=== PATIENT | male | born 1950 | race Caucasian/White ===

== ENCOUNTER → 2021-12-25 | Outpatient (CLI) | payer BC ==
[~2021-12-25] MED LIST: CARVEDILOL6.25 MG PO; CEFD300 PO; CEFP200 PO; Desyrel50 MG; Diovan320 MG PO; HYDCHL12.5 PO; LOSA50 PO; Norvasc5 MG PO; Omeprazole20 M1 PO; TRAZ150T57 PO
[2021-12-25 10:50] LABS: BASOPHILS ABSOLUTE AUTO 0.03 K/mm3 (0.00-0.23); BASOPHILS PERCENT AUTO 0 % (0-2); EOSINOPHILS PERCENT AUTO 0 % (0-6); Hematocrit 37.2 % (37.0-53.0); Hemoglobin 13.5 g/dL (13.5-17.5); IMMATURE GRAN ABSOLUTE AUTO 0.09 K/mm3 (0.00-0.10); IMMATURE GRAN PERCENT AUTO 1 % (0-1); LYMPHOCYTES ABSOLUTE AUTO 1.06 K/mm3 (0.84-5.20); LYMPHOCYTES PERCENT AUTO 8 % (21-46); MONOCYTES ABSOLUTE AUTO 2.15 K/mm3 (0.16-1.47); MONOCYTES PERCENT AUTO 16 % (4-13); Mean Corpuscular HGB 32.9 pg (26.0-34.0); Mean Corpuscular HGB Conc 36.3 g/dL (31.5-36.5); Mean Corpuscular Volume 91 fL (80-100); Mean Platelet Volume 9.1 fL (9.1-12.4); NEUTROPHILS PERCENT AUTO 76 % (41-73); Platelet Count 425 K/mm3 (150-400); RDW Coefficient Variation 13.2 % (11.7-14.2); RDW Standard Deviation 43.7 fL (35.1-46.3); White Blood Cell Count 13.73 K/mm3 (4.00-11.30)
[2021-12-25 11:14] LABS: Albumin, Blood 3.7 g/dL (3.4-5.0); Albumin/Globulin Ratio 0.9 (0.8-1.8); Bilirubin, Total 0.8 mg/dL (0.1-1.0); Bun/Creatinine Ratio 14.5 (12.0-20.0); Calcium, Blood 9.7 mg/dL (8.5-10.1); Creatinine, Blood 1.1 mg/dL (0.60-1.20); Free Thyroxine 1.72 ng/dL (0.70-1.60); Thyroid Stimulating Hormone 0.393 uIU/mL (0.360-4.800); Total Protein, Blood 7.7 g/dL (6.4-8.2)
== END ==
LOC: LAB SHORT 10:47
PROVIDERS: General Practice
DX: R07.9 Chest pain, unspecified (principal); R53.81 Other malaise; R82.90 Unspecified abnormal findings in urine
CPT/HCPCS: 80053; 84439; 84443; 84481; 84484; 85025; 87086

== ENCOUNTER 2022-02-01 01:48 | Day surgery (SDC) | payer MEDICARE ==
[~2022-02-01 01:48] MED LIST changes: +CEFTRIAXONE2 G1 IV
== END 2022-02-01 11:06 | disposition home or self-care (01) ==
LOC: ATC 01:48
DX: M46.22 Osteomyelitis of vertebra, cervical region (principal); M46.42 Discitis, unspecified, cervical region; I10 Essential (primary) hypertension; Z88.1 Allergy status to other antibiotic agents
CPT/HCPCS: 96374; J0696

== ENCOUNTER 2022-02-02 01:56 | Day surgery (SDC) | payer MEDICARE | END 2022-02-02 11:19 | disposition home or self-care (01) | LOC: ATC 01:56 | DX: M46.22 Osteomyelitis of vertebra, cervical region (principal); M46.42 Discitis, unspecified, cervical region | CPT/HCPCS: 96374; J0696 ==

== ENCOUNTER 2022-02-03 02:10 | Day surgery (SDC) | payer MEDICARE | END 2022-02-03 11:25 | disposition home or self-care (01) | LOC: ATC 02:10 | DX: M46.42 Discitis, unspecified, cervical region (principal); M46.22 Osteomyelitis of vertebra, cervical region; I10 Essential (primary) hypertension; E78.5 Hyperlipidemia, unspecified; C67.9 Malignant neoplasm of bladder, unspecified | CPT/HCPCS: 96374; J0696 ==

== ENCOUNTER 2022-02-04 02:09 | Day surgery (SDC) | payer MEDICARE | END 2022-02-04 11:19 | disposition home or self-care (01) | LOC: ATC 02:09 | DX: M46.42 Discitis, unspecified, cervical region (principal); M46.22 Osteomyelitis of vertebra, cervical region | CPT/HCPCS: 96374; J0696 ==

== ENCOUNTER 2022-02-05 02:19 | Day surgery (SDC) | payer MEDICARE | END 2022-02-05 11:23 | disposition home or self-care (01) | LOC: ATC 02:19 | DX: M46.42 Discitis, unspecified, cervical region (principal); C67.9 Malignant neoplasm of bladder, unspecified; I10 Essential (primary) hypertension; E78.5 Hyperlipidemia, unspecified; Z79.899 Other long term (current) drug therapy | CPT/HCPCS: 96374; J0696 ==

== ENCOUNTER 2022-02-07 00:25 | Day surgery (SDC) | payer MEDICARE | END 2022-02-07 11:20 | disposition home or self-care (01) | LOC: ATC 00:25 | DX: M46.42 Discitis, unspecified, cervical region (principal); C67.9 Malignant neoplasm of bladder, unspecified; I10 Essential (primary) hypertension; E78.5 Hyperlipidemia, unspecified; Z88.1 Allergy status to other antibiotic agents; Z79.899 Other long term (current) drug therapy | CPT/HCPCS: J0696 ==

== ENCOUNTER 2022-02-08 02:14 | Day surgery (SDC) | payer MEDICARE | END 2022-02-08 13:58 | disposition home or self-care (01) | LOC: ATC 02:14 | DX: M46.42 Discitis, unspecified, cervical region (principal); I10 Essential (primary) hypertension; E78.5 Hyperlipidemia, unspecified; C67.9 Malignant neoplasm of bladder, unspecified; Z88.1 Allergy status to other antibiotic agents; Z79.899 Other long term (current) drug therapy | CPT/HCPCS: J0696 ==

== ENCOUNTER 2022-02-09 00:11 | Day surgery (SDC) | payer MEDICARE | END 2022-02-09 13:12 | disposition home or self-care (01) | LOC: ATC 00:11 | DX: M46.42 Discitis, unspecified, cervical region (principal); I10 Essential (primary) hypertension; E78.5 Hyperlipidemia, unspecified; C67.9 Malignant neoplasm of bladder, unspecified; Z88.1 Allergy status to other antibiotic agents; Z79.899 Other long term (current) drug therapy | CPT/HCPCS: J0696 ==

== ENCOUNTER 2022-02-10 02:54 | Day surgery (SDC) | payer MEDICARE | END 2022-02-10 11:07 | disposition home or self-care (01) | LOC: ATC 02:54 | DX: M46.42 Discitis, unspecified, cervical region (principal); I10 Essential (primary) hypertension; E78.5 Hyperlipidemia, unspecified; C67.9 Malignant neoplasm of bladder, unspecified; Z88.1 Allergy status to other antibiotic agents; Z79.899 Other long term (current) drug therapy | CPT/HCPCS: J0696 ==

== ENCOUNTER 2022-02-11 00:57 | Day surgery (SDC) | payer MEDICARE | END 2022-02-11 11:10 | disposition home or self-care (01) | LOC: ATC 00:57 | DX: M46.42 Discitis, unspecified, cervical region (principal); I10 Essential (primary) hypertension; E78.5 Hyperlipidemia, unspecified; C67.9 Malignant neoplasm of bladder, unspecified; Z79.899 Other long term (current) drug therapy | CPT/HCPCS: J0696 ==

== ENCOUNTER 2022-02-12 00:15 | Day surgery (SDC) | payer MEDICARE | END 2022-02-12 11:16 | disposition home or self-care (01) | LOC: ATC 00:15 | DX: M46.42 Discitis, unspecified, cervical region (principal); M46.22 Osteomyelitis of vertebra, cervical region | CPT/HCPCS: J0696 ==

== ENCOUNTER 2022-02-13 01:25 | Day surgery (SDC) | payer MEDICARE ==
[2022-02-13 12:02] LABS: BASOPHILS ABSOLUTE AUTO 0.07 K/mm3 (0.00-0.23); BASOPHILS PERCENT AUTO 1 % (0-2); EOSINOPHILS ABSOLUTE AUTO 0.16 K/mm3 (0.00-0.68); EOSINOPHILS PERCENT AUTO 2 % (0-6); Hematocrit 28.8 % (37.0-53.0); Hemoglobin 9.6 g/dL (13.5-17.5); IMMATURE GRAN ABSOLUTE AUTO 0.04 K/mm3 (0.00-0.10); IMMATURE GRAN PERCENT AUTO 1 % (0-1); LYMPHOCYTES ABSOLUTE AUTO 1.87 K/mm3 (0.84-5.20); LYMPHOCYTES PERCENT AUTO 26 % (21-46); MONOCYTES ABSOLUTE AUTO 1.25 K/mm3 (0.16-1.47); MONOCYTES PERCENT AUTO 18 % (4-13); Mean Corpuscular HGB 29.9 pg (26.0-34.0); Mean Corpuscular HGB Conc 33.3 g/dL (31.5-36.5); Mean Corpuscular Volume 90 fL (80-100); Mean Platelet Volume 9.6 fL (9.1-12.4); NEUTROPHILS ABSOLUTE AUTO 3.72 K/mm3 (1.96-9.15); NEUTROPHILS PERCENT AUTO 52 % (41-73); Platelet Count 462 K/mm3 (150-400); RDW Coefficient Variation 14.7 % (11.7-14.2); Red Blood Cell Count 3.21 M/mm3 (4.30-5.90); White Blood Cell Count 7.11 K/mm3 (4.00-11.30)
[2022-02-13 12:47] LABS: Albumin, Blood 3.4 g/dL (3.4-5.0); Albumin/Globulin Ratio 0.8 (0.8-1.8); Bilirubin, Total 0.3 mg/dL (0.1-1.0); Bun/Creatinine Ratio 19.4 (12.0-20.0); C-REACTIVE PROTEIN, EXT RANGE 1.75 mg/dL (0.000-0.300); Calcium, Blood 9.6 mg/dL (8.5-10.1); Creatinine, Blood 0.93 mg/dL (0.60-1.20); Globulin, Blood 4.5 g/dL (2.2-4.0); Magnesium, Blood 1.8 mg/dL (1.6-2.4); Potassium, Blood 4.2 mmol/L (3.5-5.5); Total Protein, Blood 7.9 g/dL (6.4-8.2)
[2022-02-16 14:08] LABS: HEPARIN INDUCED PLATELET AB 0.133 OD (0.000-0.400)
[2022-02-17 12:09] LABS: HEPATITIS C QUANTITATION HCV Not Detected IU/mL (.)
== END 2022-02-13 11:41 | disposition home or self-care (01) ==
LOC: ATC 01:25
PROVIDERS: Internal Medicine Infectious Disease
DX: M46.22 Osteomyelitis of vertebra, cervical region (principal); M46.42 Discitis, unspecified, cervical region; B18.2 Chronic viral hepatitis C; E87.1 Hypo-osmolality and hyponatremia; E83.52 Hypercalcemia; I10 Essential (primary) hypertension; Z88.1 Allergy status to other antibiotic agents
CPT/HCPCS: 80053; 83735; 85025; 85651; 86022; 86140; 86707; 86803; 87522; J0696

== ENCOUNTER 2022-02-14 02:00 | Day surgery (SDC) | payer MEDICARE | END 2022-02-14 11:21 | disposition home or self-care (01) | LOC: ATC 02:00 | DX: M46.42 Discitis, unspecified, cervical region (principal); M46.22 Osteomyelitis of vertebra, cervical region | CPT/HCPCS: J0696 ==

== ENCOUNTER 2022-02-15 04:08 | Day surgery (SDC) | payer MEDICARE | END 2022-02-15 11:11 | disposition home or self-care (01) | LOC: ATC 04:08 | DX: M46.42 Discitis, unspecified, cervical region (principal); M46.22 Osteomyelitis of vertebra, cervical region; E78.5 Hyperlipidemia, unspecified; I10 Essential (primary) hypertension; C67.9 Malignant neoplasm of bladder, unspecified | CPT/HCPCS: J0696 ==

== ENCOUNTER 2022-02-17 03:32 | Day surgery (SDC) | payer MEDICARE | END 2022-02-17 11:05 | disposition home or self-care (01) | LOC: ATC 03:32 | DX: M46.42 Discitis, unspecified, cervical region (principal); E78.5 Hyperlipidemia, unspecified; I10 Essential (primary) hypertension; M46.22 Osteomyelitis of vertebra, cervical region; C67.9 Malignant neoplasm of bladder, unspecified | CPT/HCPCS: J0696 ==

== ENCOUNTER 2022-02-18 00:10 | Day surgery (SDC) | payer MEDICARE | END 2022-02-18 11:11 | disposition home or self-care (01) | LOC: ATC 00:10 | DX: M46.22 Osteomyelitis of vertebra, cervical region (principal); M46.42 Discitis, unspecified, cervical region; C67.9 Malignant neoplasm of bladder, unspecified; I10 Essential (primary) hypertension; Z88.1 Allergy status to other antibiotic agents | CPT/HCPCS: J0696 ==

== ENCOUNTER 2022-02-19 02:04 | Day surgery (SDC) | payer MEDICARE | END 2022-02-19 11:05 | disposition home or self-care (01) | LOC: ATC 02:04 | DX: M46.42 Discitis, unspecified, cervical region (principal); I10 Essential (primary) hypertension; E78.5 Hyperlipidemia, unspecified; C67.9 Malignant neoplasm of bladder, unspecified; Z88.1 Allergy status to other antibiotic agents; Z79.899 Other long term (current) drug therapy | CPT/HCPCS: J0696 ==

== ENCOUNTER 2022-02-20 02:52 | Day surgery (SDC) | payer MEDICARE ==
[2022-02-20 11:51] LABS: BASOPHILS ABSOLUTE AUTO 0.05 K/mm3 (0.00-0.23); BASOPHILS PERCENT AUTO 1 % (0-2); EOSINOPHILS ABSOLUTE AUTO 0.16 K/mm3 (0.00-0.68); EOSINOPHILS PERCENT AUTO 2 % (0-6); Hematocrit 26.5 % (37.0-53.0); Hemoglobin 9.2 g/dL (13.5-17.5); IMMATURE GRAN ABSOLUTE AUTO 0.02 K/mm3 (0.00-0.10); IMMATURE GRAN PERCENT AUTO 0 % (0-1); LYMPHOCYTES ABSOLUTE AUTO 1.74 K/mm3 (0.84-5.20); LYMPHOCYTES PERCENT AUTO 23 % (21-46); MONOCYTES ABSOLUTE AUTO 1.14 K/mm3 (0.16-1.47); MONOCYTES PERCENT AUTO 15 % (4-13); Mean Corpuscular HGB 30.7 pg (26.0-34.0); Mean Corpuscular HGB Conc 34.7 g/dL (31.5-36.5); Mean Corpuscular Volume 88 fL (80-100); Mean Platelet Volume 9.9 fL (9.1-12.4); NEUTROPHILS ABSOLUTE AUTO 4.36 K/mm3 (1.96-9.15); NEUTROPHILS PERCENT AUTO 58 % (41-73); Platelet Count 369 K/mm3 (150-400); RDW Coefficient Variation 15.4 % (11.7-14.2); RDW Standard Deviation 50.1 fL (35.1-46.3); White Blood Cell Count 7.47 K/mm3 (4.00-11.30)
[2022-02-20 12:05] LABS: C-REACTIVE PROTEIN, EXT RANGE 1.03 mg/dL (0.000-0.300)
[2022-02-20 12:07] LABS: Albumin, Blood 3.5 g/dL (3.4-5.0); Albumin/Globulin Ratio 0.9 (0.8-1.8); Bilirubin, Total 0.5 mg/dL (0.1-1.0); Bun/Creatinine Ratio 15.8 (12.0-20.0); Calcium, Blood 9.7 mg/dL (8.5-10.1); Creatinine, Blood 1.14 mg/dL (0.60-1.20); Globulin, Blood 3.8 g/dL (2.2-4.0); Potassium, Blood 4.2 mmol/L (3.5-5.5); Total Protein, Blood 7.3 g/dL (6.4-8.2)
--- NOTE | 2022-02-20 12:35 | NUR ---
LAB RESULTS FROM TODAY FAXED TO DR. TURNER'S OFFICE. BP LOG FAXED TO [facility] PER PT'S REQUEST TODAY. PT HAS A FOLLOW UP APPOINTMENT WITH [facility] AND PT WOULD LIKE HER TO KNOW WHAT HIS BP HAS BEEN WHILE HE HAS BEEN HERE FOR ANTIBIOTICS.
== END 2022-02-20 11:27 | disposition home or self-care (01) ==
LOC: ATC 02:52
PROVIDERS: Internal Medicine Infectious Disease
DX: M46.22 Osteomyelitis of vertebra, cervical region (principal); M46.42 Discitis, unspecified, cervical region; I10 Essential (primary) hypertension; Z88.1 Allergy status to other antibiotic agents
CPT/HCPCS: 80053; 85025; 85651; 86140; J0696

== ENCOUNTER 2022-02-21 02:45 | Day surgery (SDC) | payer MEDICARE | END 2022-02-21 11:09 | disposition home or self-care (01) | LOC: ATC 02:45 | DX: M46.22 Osteomyelitis of vertebra, cervical region (principal); I10 Essential (primary) hypertension; E78.5 Hyperlipidemia, unspecified; C67.9 Malignant neoplasm of bladder, unspecified | CPT/HCPCS: J0696 ==

== ENCOUNTER 2022-02-22 02:21 | Day surgery (SDC) | payer MEDICARE | END 2022-02-22 11:07 | disposition home or self-care (01) | LOC: ATC 02:21 | DX: M46.22 Osteomyelitis of vertebra, cervical region (principal); M46.42 Discitis, unspecified, cervical region; I10 Essential (primary) hypertension; Z88.1 Allergy status to other antibiotic agents | CPT/HCPCS: J0696 ==

== ENCOUNTER 2022-02-23 01:35 | Day surgery (SDC) | payer MEDICARE | END 2022-02-23 10:48 | disposition home or self-care (01) | LOC: ATC 01:35 | DX: M46.42 Discitis, unspecified, cervical region (principal); C67.9 Malignant neoplasm of bladder, unspecified; I10 Essential (primary) hypertension; E78.5 Hyperlipidemia, unspecified; Z88.1 Allergy status to other antibiotic agents; Z79.899 Other long term (current) drug therapy | CPT/HCPCS: J0696 ==

== ENCOUNTER 2022-02-24 00:26 | Day surgery (SDC) | payer MEDICARE | END 2022-02-24 11:48 | disposition home or self-care (01) | LOC: ATC 00:26 | DX: M46.22 Osteomyelitis of vertebra, cervical region (principal); I10 Essential (primary) hypertension; E78.5 Hyperlipidemia, unspecified; C67.9 Malignant neoplasm of bladder, unspecified | CPT/HCPCS: J0696 ==

== ENCOUNTER 2022-02-25 00:15 | Day surgery (SDC) | payer MEDICARE | END 2022-02-25 11:11 | disposition home or self-care (01) | LOC: ATC 00:15 | DX: M46.42 Discitis, unspecified, cervical region (principal); I10 Essential (primary) hypertension; E78.5 Hyperlipidemia, unspecified; C67.9 Malignant neoplasm of bladder, unspecified; Z88.1 Allergy status to other antibiotic agents; Z79.899 Other long term (current) drug therapy | CPT/HCPCS: J0696 ==

== ENCOUNTER 2022-02-28 01:33 | Day surgery (SDC) | payer MEDICARE | END 2022-02-28 11:12 | disposition home or self-care (01) | LOC: ATC 01:33 | DX: M46.22 Osteomyelitis of vertebra, cervical region (principal); M46.42 Discitis, unspecified, cervical region; C67.9 Malignant neoplasm of bladder, unspecified; I10 Essential (primary) hypertension; Z88.1 Allergy status to other antibiotic agents | CPT/HCPCS: 96374; J0696 ==

== ENCOUNTER 2022-03-01 02:26 | Day surgery (SDC) | payer MEDICARE ==
[2022-03-01 12:04] LABS: BASOPHILS ABSOLUTE AUTO 0.07 K/mm3 (0.00-0.23); BASOPHILS PERCENT AUTO 1 % (0-2); EOSINOPHILS ABSOLUTE AUTO 0.16 K/mm3 (0.00-0.68); EOSINOPHILS PERCENT AUTO 3 % (0-6); Hematocrit 29.8 % (37.0-53.0); Hemoglobin 10.1 g/dL (13.5-17.5); IMMATURE GRAN ABSOLUTE AUTO 0.02 K/mm3 (0.00-0.10); IMMATURE GRAN PERCENT AUTO 0 % (0-1); LYMPHOCYTES ABSOLUTE AUTO 1.72 K/mm3 (0.84-5.20); LYMPHOCYTES PERCENT AUTO 26 % (21-46); MONOCYTES ABSOLUTE AUTO 0.84 K/mm3 (0.16-1.47); MONOCYTES PERCENT AUTO 13 % (4-13); Mean Corpuscular HGB 30.2 pg (26.0-34.0); Mean Corpuscular HGB Conc 33.9 g/dL (31.5-36.5); Mean Corpuscular Volume 89 fL (80-100); Mean Platelet Volume 9.8 fL (9.1-12.4); NEUTROPHILS ABSOLUTE AUTO 3.72 K/mm3 (1.96-9.15); NEUTROPHILS PERCENT AUTO 57 % (41-73); Platelet Count 364 K/mm3 (150-400); RDW Coefficient Variation 15.8 % (11.7-14.2); RDW Standard Deviation 51.9 fL (35.1-46.3); Red Blood Cell Count 3.34 M/mm3 (4.30-5.90); White Blood Cell Count 6.53 K/mm3 (4.00-11.30)
[2022-03-01 12:27] LABS: Albumin, Blood 3.7 g/dL (3.4-5.0); Albumin/Globulin Ratio 0.9 (0.8-1.8); Bilirubin, Total 0.5 mg/dL (0.1-1.0); Bun/Creatinine Ratio 15.1 (12.0-20.0); Calcium, Blood 9.7 mg/dL (8.5-10.1); Globulin, Blood 4.1 g/dL (2.2-4.0); Magnesium, Blood 1.4 mg/dL (1.6-2.4); Potassium, Blood 4.1 mmol/L (3.5-5.5); Total Protein, Blood 7.8 g/dL (6.4-8.2)
== END 2022-03-01 11:06 | disposition home or self-care (01) ==
LOC: ATC 02:26
PROVIDERS: Family Medicine
DX: M46.42 Discitis, unspecified, cervical region (principal); M46.22 Osteomyelitis of vertebra, cervical region; E78.5 Hyperlipidemia, unspecified; Z85.51 Personal history of malignant neoplasm of bladder
CPT/HCPCS: 36592; 80053; 83735; 85025; 96374; J0696

== ENCOUNTER 2022-03-02 03:20 | Day surgery (SDC) | payer MEDICARE | END 2022-03-02 11:15 | disposition home or self-care (01) | LOC: ATC 03:20 | DX: M46.22 Osteomyelitis of vertebra, cervical region (principal); M46.42 Discitis, unspecified, cervical region; I10 Essential (primary) hypertension; Z88.1 Allergy status to other antibiotic agents | CPT/HCPCS: 96374; J0696 ==

== ENCOUNTER 2022-04-10 08:44 | Day surgery (SDC) | payer MEDICARE ==
[~2022-04-10] VITALS: Ht 160 cm; Wt 53.6 kg
[~2022-04-10 08:44] MED LIST changes: +DOXY100 PO; +LOSARTAN-HCTZ1 EACH PO; +Percocet 10-321 EACH PO
--- NOTE | 2022-04-10 09:19 | NUR ---
04/10/22 0919 Odalis Castillo HISTORY, CHART, MEDICATIONS AND ALLERGIES REVIEWED BEFORE START OF PROCEDURE. PATIENT CONFIRMS NPO STATUS AND AGREES WITH SCHEDULED PROCEDURE. 3-LEAD EKG REVIEWED WITH PHYSICIAN PRIOR TO START OF PROCEDURE. MONITOR INTACT WITH CONTINUOUS PULSE OXIMETRY,CAPNOGRAPHY, 3-LEAD EKG, INTERMITTENT BP. SUPPLEMENTAL O2 TO BE TITRATED THROUGHOUT PROCEDURE TO MAINTAIN O2 SATURATION ABOVE 90%. PATIENT DETERMINED TO BE ASA APPROPRIATE FOR PROPOFOL SEDATION PRIOR TO START OF PROCEDURE BY DR. ZURITA.
--- NOTE | 2022-04-10 09:36 | NUR ---
History, Chart, Medications and Allergies reviewed before start of procedure. Patient confirms NPO status and agrees with scheduled surgery. Patient States Post-Procedure ride home has been arranged WITH [facility]. Patient states colon prep results clear.
--- NOTE | 2022-04-10 10:53 | NUR ---
Patient up to Ambulate independently. Gait steady. Discharge instructions reviewed with patient. Patient verbalizes understanding. Copy given to patient to take home. Patient States Post-Procedure ride home has been arranged with . Discharged via wheelchair to private car for ride home.
== END 2022-04-10 10:54 | disposition home or self-care (01) ==
LOC: ORSCMMR 08:44 → ORD 09:30 → ORSCMMR 10:54
PROVIDERS: Internal Medicine Gastroenterology
PROC: 0DBL8ZX Excision of Transverse Colon, Via Natural or Artificial Opening Endoscopic, Diagnostic (ICD-10-PCS; principal; 2022-04-10 09:30)
PROC: 0DBM8ZX Excision of Descending Colon, Via Natural or Artificial Opening Endoscopic, Diagnostic (ICD-10-PCS; principal; 2022-04-10 09:30)
DX: Z12.11 Encounter for screening for malignant neoplasm of colon (principal); Z86.010 Personal history of colon polyps; D12.3 Benign neoplasm of transverse colon; D12.4 Benign neoplasm of descending colon; K64.8 Other hemorrhoids; I10 Essential (primary) hypertension; Z85.51 Personal history of malignant neoplasm of bladder; Z79.899 Other long term (current) drug therapy
CPT/HCPCS: 88305; J2704; J7120

== ENCOUNTER → 2024-04-17 | Outpatient (CLI) | payer MEDICARE | LOC: LAB SHORT 07:54 → LAB 07:54 | DX: L57.0 Actinic keratosis (principal) | CPT/HCPCS: 88305; 88312 ==